=== PATIENT | female | born 1960 | race Hispanic/Latino ===

== ENCOUNTER 2016-11-23 08:47 | Day surgery (SDC) | payer OTHER ==
[2016-11-23 09:27] VITALS: BMI 27.3
[2016-11-23] MEDS ORDERED: Lactated Ringer's 1,000 ML IV ONE (09:43)
[2016-11-23] MEDS ORDERED: methylPREDNISolone Depo 80 mg/ml Inj ONE (10:06)
[2016-11-23] MEDS ORDERED: Bupivacaine HCl 0.25% PF (10 ml) Inj ONE (10:07)
[2016-11-23] MEDS ORDERED: Lidocaine 1% Inj (20ml) ONE (10:07)
[2016-11-23] MEDS ORDERED: Iohexol 300 10 ML ONE (10:07)
[2016-11-23] MEDS ORDERED: Midazolam 2 MG/2 ML VIAL ONE (10:22)
[2016-11-23] MEDS ORDERED: Lidocaine 1% Inj (20ml) IJ ONE ×2 (10:28)
[2016-11-23] MEDS ORDERED: Iohexol 300 10 ML IJ ONE (10:29)
[2016-11-23] MEDS ORDERED: methylPREDNISolone Depo 80 mg/ml Inj IM ONE (10:30)
[2016-11-23] MEDS ORDERED: Bupivacaine HCl 0.25% PF (10 ml) Inj IJ ONE ×2 (10:30)
[2016-11-23] MEDS ORDERED: Lactated Ringer's 1,000 ML IV SCH (10:47)
[2016-11-23 11:49] VITALS: BP 119/71; PULSE 61; RESP 18; TEMP 97.7
[2016-11-23 13:18] VITALS: O2SAT 98
--- NOTE | 2016-11-24 09:51 | OP ---
PROCEDURE DATE: 11/23/2016 PREOPERATIVE DIAGNOSIS: Cervical facet syndrome. POSTOPERATIVE DIAGNOSIS: Cervical facet syndrome. PROCEDURE: Bilateral C3, C4 and C5 medial branch nerve block. ANESTHESIOLOGIST: Dr. Antoine SURGEON: Dr. Bobby Jackson. TYPE OF ANESTHESIA: Monitored anesthesia care. COMPLICATIONS: None. SPECIMEN: None. DESCRIPTION OF PROCEDURE: After discussion of the procedure with the patient including its risks, benefits, alternatives, outcome data, possibility of no effects, increased pain The patient consented to the procedure. She denies any recent infection, bleeding tendencies or being on anticoagulants. Decision was then made to proceed to the OR. The patient was placed on fluoroscopy table in a prone position using the head positioner. The neck was prepped and draped in a usual sterile fashion and sterile technique was adhered during the entire procedure. The C3, C4, and C5 vertebral levels were first identified in the anterior and posterior view. The medial branch nerves are located at the midpoint of the lateral facet border of the corresponding vertebral levels. The procedure was first performed on the left side. The skin overlying the 3 target areas was infiltrated with 1% lidocaine using 25-gauge needle. Subsequently, a 25-gauge 3.5 inch spinal needle was increment to the events under fluoroscopic guidance until *------*bony contact with all 3 target areas. The needle was then worked slightly laterally and anteriorly. At this point, intravenous *------* was ruled out by injecting approximately 0.5 mL of Isovue contrast. After ruling out intravenous uptake, approximately 2 mL of 0.25% Marcaine and Depo Medrol mixture was injected. Needle was then removed and same exact procedure was performed on the contralateral right side using the same medication and techniques. At the end of the case, the patient's neck was clean and dry, bandage was applied. 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 She will follow up in the office in approximately 2-4 weeks. Bobby Jackson MD
--- NOTE | 2016-12-01 15:11 | RAD ---
PROCEDURE: Epidural spinal injection HISTORY: PAIN MANAGEMENT COMPARISON: None TECHNIQUE: Standard protocol for this study/examination. FINDINGS: Submitted images from the current procedure: 4.0 IMPRESSION: Total fluoroscopic time (continuous mode) utilized during the procedure: 48.1 seconds.
== END 2016-11-23 11:30 | disposition home or self-care (01) ==
LOC: H.OPSURG 08:47
PROVIDERS: ATTEND Anesthesiology
DX: M47.812 Spondylosis without myelopathy or radiculopathy, cervical region (principal); E03.9 Hypothyroidism, unspecified; L40.9 Psoriasis, unspecified

== ENCOUNTER 2017-12-28 08:34 | Emergency (ER) | payer OTHER ==
[2017-12-28 08:34] VITALS: BMI 26.4
[2017-12-28 08:38] VITALS: TEMP 99.5
[2017-12-28 09:29] VITALS: BP 131/68; PULSE 81; RESP 18; O2SAT 99
--- NOTE | 2017-12-28 09:41 | ED PDOC ---
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 Patient reports she was at work when got very upset at something. She went to the employee office, her blood pressure was taken and shew as referred here for further evaluation. Patient denies difficulty breathing, chest pain headache , shortness of breath, visual deficits, dizziness, weakness, numbness, or any other medical complaints. At this time, she states she feels much better and is significantly calmer than before. Patient has no family history of hypertension. PMD: Dr. Mckeon Past Medical History Reviewed: Historical Data, Nursing Documentation, Vital Signs Vital Signs: Last Vital Signs Temp 99.5 F 12/28/17 08:43 Pulse 81 12/28/17 09:28 Resp 18 12/28/17 09:28 BP 131/68 12/28/17 09:28 Pulse Ox 99 12/28/17 09:43 - Medical History PMH: Anemia, Arthritis (back,neck), Hypothyroidism Denies: Chronic Kidney Disease - Surgical History Surgical History: No Surg Hx - Family History Family History: States: No Known Family Hx Denies: Hypertension - Immunization History Hx Tetanus Toxoid Vaccination: No Hx Influenza Vaccination: No Hx Pneumococcal Vaccination: No - Home Medications Home Medications: Ambulatory Orders Medication Instructions Recorded Etanercept [Enbrel] 50 mg SQ QD7 08/07/16 Folic Acid 1 mg PO DAILY 08/07/16 Levothyroxine [Synthroid] 100 mcg PO DAILY 08/07/16 Methotrexate 6 tab PO QWK 08/07/16 - Allergies Allergies/Adverse Reactions: Allergies Allergy/AdvReac Type Severity Reaction Status Date / Time No Known Allergies Allergy Verified 12/28/17 08:46 Review of Systems ROS Statement: Except As Marked, All Systems Reviewed And Found Negative Constitutional: Negative for: Fever, Weakness Eyes: Negative for: Vision Change Cardiovascular: Negative for: Chest Pain Respiratory: Negative for: Shortness of Breath Neurological: Negative for: Weakness, Numbness, Dizziness Physical Exam - Reviewed Nursing Documentation Reviewed: Yes Vital Signs Reviewed: Yes - Physical Exam Appears: Positive for: Non-toxic, No Acute Distress Head Exam: Positive for: ATRAUMATIC, NORMOCEPHALIC Skin: Positive for: Normal Color, Warm, Dry Eye Exam: Positive for: Normal appearance, EOMI, PERRL Neck: Positive for: Normal, Painless ROM Cardiovascular/Chest: Positive for: Regular Rate, Rhythm. Negative for: Murmur Respiratory: Positive for: Normal Breath Sounds. Negative for: Respiratory Distress Extremity: Positive for: Normal ROM (upper and lower) Neurologic/Psych: Positive for: Alert, Oriented (x3), Gait (steady) - ECG O2 Sat by Pulse Oximetry: 99 (RA) Pulse Ox Interpretation: Normal Medical Decision Making Medical Decision Making: Time: 924 Initial Impression: high blood pressure --Blood pressure is improved in ED 142/77. Patient is asymptomatic, no further indications for evaluation or emergency treatment at this time. Patient will be referred back to employee office. Scribe Attestation: Documented by Shanique Paulson, acting as a scribe for Cory Law MD Provider Scribe Attestation: All medical record entries made by the Scribe were at my direction and personally dictated by me. I have reviewed the chart and agree that the record accurately reflects my personal performance of the history, physical exam, medical decision making, and the department course for this patient. I have also personally directed, reviewed, and agree with the discharge instructions and disposition. Disposition - Clinical Impression Clinical Impression: Elevated blood pressure reading - Disposition Disposition Time: 09:25 Condition: GOOD Additional Instructions: Follow up with your PCP in 2-3 days for high blood pressure. Return to employee office today. Instructions: Hypotension (ED) Forms: [facility] ED School/Work Excuse
== END 2017-12-28 09:39 | disposition home or self-care (01) ==
LOC: H.ER 08:34
DX: I10 Essential (primary) hypertension (principal); E03.9 Hypothyroidism, unspecified; G89.29 Other chronic pain

== ENCOUNTER 2017-12-29 08:45 | Day surgery (SDC) | payer OTHER ==
[2017-12-25 09:25] VITALS: BMI 26.4
[2017-12-29] MEDS ORDERED: Iohexol 300 10 ML ONE (11:05)
[2017-12-29] MEDS ORDERED: MethylPREDNISolone Depo 40 mg/ml Inj ONE (11:05)
[2017-12-29] MEDS ORDERED: Lidocaine 1% MPF (30 ml) Inj ONE (11:28)
[2017-12-29] MEDS ORDERED: Midazolam 2 MG/2 ML VIAL ONE (11:29)
[2017-12-29] MEDS ORDERED: Lactated Ringer's 1,000 ML IV ONE (11:45)
[2017-12-29] MEDS ORDERED: Lidocaine 2% Inj (20ml) IJ ONE (11:53)
[2017-12-29] MEDS ORDERED: Bupivacaine HCl 0.25% PF (30 ml) Inj IJ ONE (11:55)
[2017-12-29] MEDS ORDERED: HYDROmorphone 0.5 mg/0.5 ml ISec IVP PRN (12:04)
[2017-12-29] MEDS ORDERED: Lactated Ringer's 1,000 ML IV SCH (12:15)
[2017-12-29 12:46] VITALS: BP 133/72; PULSE 69; RESP 18; TEMP 97.7
[2017-12-29 12:48] VITALS: O2SAT 96
--- NOTE | 2017-12-29 17:06 | RAD ---
Date of service: 12/29/2017 PROCEDURE: Intraoperative fluoroscopy HISTORY: PAIN MANAGEMENT COMPARISON: Not available TECHNIQUE: Intraoperative fluoroscopy was provided for an interventional pain management procedure. Total time of fluoroscopy was 33.2 seconds. The cumulative dose was 3.46 mGy. FINDINGS: Two fluoroscopic spot films are submitted. IMPRESSION: Fluoroscopy provided
--- NOTE | 2017-12-29 22:17 | OP ---
Copied To: Bobby Jackson MD Attending MD: Bobby Jackson MD PROCEDURE DATE: 12/29/2017 PREOPERATIVE DIAGNOSIS: Cervical facet syndrome. POSTOPERATIVE DIAGNOSIS: Cervical facet syndrome. PROCEDURES: Left C2, C3, and C4 medial branch nerve block. ANESTHESIOLOGIST: Luis Carlos Sheikh MD SURGEON: Bobby Jackson MD ANESTHESIA TYPE: Monitored anesthesia care. COMPLICATIONS: None. SPECIMEN: None. DESCRIPTION OF PROCEDURE: As follows: After we had discussion of the procedure with the patient including its risks, benefits, alternatives, outcome data, and possibility of no effect or increased pain, the patient consented to the procedure. She denies any recent infection, bleeding tendencies, or being on anticoagulants. A decision was then made to proceed to the OR. The patient was placed on the fluoroscopy table in a prone position with two pillows underneath her abdomen. The head and neck was placed in the head positioner. The neck was prepped and draped in the usual sterile fashion, and a sterile technique was adhered during the entire procedure. The C2, C3, and C4 vertebral levels were first identified in the anteroposterior view. The medial branch nerves are located at the lateral facet border at the mid point of the corresponding vertebra. The skin overlying the three above target areas were then infiltrated with 1% lidocaine using 25-gauge needle. Subsequently, a 25-gauge 3.5 inch spinal needle was then incrementally advanced under fluoroscopic guidance until the made bony contact with all three target areas. After satisfactory positioning of all three needles, approximately 0.5 mL of Isovue contrast was injected to rule out intravenous uptake. At this point, approximately 2 mL of 0.25% Marcaine and Depo-Medrol mixture was injected. The needle was then removed, and the patient's neck was cleaned and dried, and bandage was applied. 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 She will be followed in our office in approximately two to four weeks. Bobby Jackson MD
== END 2017-12-29 13:10 | disposition home or self-care (01) ==
LOC: H.OPSURG 08:45
PROVIDERS: ATTEND Anesthesiology
DX: M47.812 Spondylosis without myelopathy or radiculopathy, cervical region (principal); E03.9 Hypothyroidism, unspecified; F17.210 Nicotine dependence, cigarettes, uncomplicated
CPT/HCPCS: 64490; 64491; J1030; J2250; J3010; J7120; Q9967